=== PATIENT | female | born 1995 | race African-American/Black ===

== ENCOUNTER 2016-08-22 09:15 | Emergency (ER) | payer SELFPAY ==
[~2016-08-22] VITALS: Ht 162.6 cm; Wt 70.0 kg
[~2016-08-22 09:15] MED LIST: ACET325S8 PO
[2016-08-22 09:17] VITALS: BP 143/70; PULSE 75; RESP 16; TEMP 97.8; O2SAT 98
[2016-08-22] MEDS ORDERED: KETOROLAC TROMETHAMINE 60 MG/2 ML (IM) VIAL IM ONE (10:00)
--- NOTE | 2016-08-22 10:27 | PD ---
HPI Chief Complaint: Chest Pain Time Seen by Provider: 09:41 Travel History International Travel<30 days: No Contact w/Intl Traveler<30days: No Traveled to known affect area: No History of Present Illness HPI The patient was seen and examined in the presence of the nurse. She complains of chest pain. She's had on and off for 3 years. Severity is mild to moderate. No alleviating factors no injury PFSH Past Medical History Medical History: Denies Significant Hx Hx Anticoagulant Therapy: No ADHD: No Weight (Kg): 3 Cancer: No Cardiovascular Problems: No Chemotherapy: No Cerebrovascular Accident: No Developmental Delay: No Diabetes: No Diminished Hearing: No Headaches: Yes (OCCASIONAL HEADACHES) Psychiatric: No Respiratory: No Immunizations Current: Yes Migraines: Yes Seizures: No Thyroid Disease: No Ulcer: No Tetanus Vaccination: < 5 Years ?: Not LMP: now Menopausal: No : 1 Para: 1 Past Surgical History Appendectomy: No Section: No Cholecystectomy: No Hysterectomy: No Other Surgery: No Social History Alcohol Use: Yes (yearly) Tobacco Use: No Substance Use: No Allergies-Medications (Allergen,Severity, Reaction): Coded Allergies: No Known Allergies (Verified , 08/22/16) Reported Meds & Prescriptions Reported Meds & Active Scripts Active No Active Prescriptions or Reported Medications Review of Systems General / Constitutional: No: Fever HENT: No: Headaches Cardiovascular: Positive: Chest Pain or Discomfort Respiratory: No: Cough Physical Exam Narrative CARDIOVASCULAR: Regular rate and rhythm without murmur. Extremities showed no edema or varicosities. RESPIRATORY: Respiratory effort unlabored, no retractions or use of accessory muscles. Breath sounds are clear and symmetric. GASTROINTESTINAL: Abdomen soft, non-tender, nondistended. Positive bowel sounds. No hepato-splenomegaly, or palpable masses. No guarding. Chest wall: Readily reproducible tenderness over the lower half of her sternum Data Data Last Documented VS Vital Signs Date Time Temp Pulse Resp B/P Pulse Ox O2 Delivery O2 Flow Rate FiO2 08/22/16 09:17 97.8 75 16 143/70 98 Orders Ketorolac Inj (Toradol Inj) (08/22/16 10:00) [facility] Medical Decision Making Medical Screen Exam Complete: Yes Emergency Medical Condition: Yes Medical Record Reviewed: Yes Differential Diagnosis Differential diagnosis includes MT, angina, pericarditis, pleurisy, GERD, anxiety. Narrative Course I have reviewed the patient's electronic medical record. I reviewed her EKG which shows sinus rhythm with no ST elevation Presentation is consistent with musculoskeletal chest wall pain I gave her Toradol injection She will use Tylenol and Motrin as needed and follow-up with primary care Diagnosis Primary Impression: Musculoskeletal chest pain Additional Instructions: The patient was advised to follow up with their physician and return if they worsen. Med/Other Pt SpecificInfo: Other Scripts No Active Prescriptions or Reported Meds Disposition: 01 DISCHARGE HOME Condition: Stable Jimmy Perla MD Aug 22, 2016 10:27
--- NOTE | 2016-08-23 20:21 | EKG ---
Date Performed: 08/22/2016 Time Performed: 09:41:50 PTAGE: 21 years EKG: Sinus rhythm WITH MARKED SINUS ARRHYTHMIA POSSIBLE LEFT ATRIAL ENLARGEMENT POSSIBLE RIGHT VENTRICULAR CONDUCTION DELAY BORDERLINE ECG NO PREVIOUS TRACING DOCTOR: Erich Lam Interpretating Date/Time 08/23/2016 20:21:25
== END 2016-08-22 10:38 | disposition home or self-care (01) ==
LOC: NEPE 09:15
DX: R07.89 Other chest pain (principal)
CPT/HCPCS: 93005; 96372; 99283; J1885

== ENCOUNTER 2017-06-11 18:26 | Emergency (ER) | payer SELFPAY ==
[2017-06-11 18:29] VITALS: BP 132/86; PULSE 113; RESP 14; TEMP 99.6; O2SAT 98
--- NOTE | 2017-06-11 19:08 | PD ---
HPI . Diarrhea Chief Complaint: Cold / Flu Symptoms Time Seen by Provider: 18:58 Travel History International Travel<30 days: No Contact w/Intl Traveler<30days: No Traveled to known affect area: No History of Present Illness HPI Patient presents with chief complaint of diarrhea. Onset was about 11 PM last night. She is unable to quantify the diarrhea. She indicates that it is too numerous to count. She has had 2 episodes of emesis. Unable to tolerate fluids. Her symptoms are associated with subjective fevers and chills. She states that her sister has been sick but that she has not been around her sister. PFSH Past Medical History Hx Anticoagulant Therapy: No ADHD: No Cancer: No Cardiovascular Problems: No Chemotherapy: No Cerebrovascular Accident: No Developmental Delay: No Diabetes: No Diminished Hearing: No Headaches: Yes (OCCASIONAL HEADACHES) Psychiatric: No Respiratory: No Immunizations Current: Yes Migraines: Yes Seizures: No Thyroid Disease: No Ulcer: No LMP: 04/2017 Menopausal: No : 1 Para: 1 Past Surgical History Appendectomy: No Section: No Cholecystectomy: No Hysterectomy: No Other Surgery: No Social History Alcohol Use: Yes (yearly) Tobacco Use: No Substance Use: No Allergies-Medications (Allergen,Severity, Reaction): Coded Allergies: No Known Allergies (Verified , 08/22/16) Reported Meds & Prescriptions Reported Meds & Active Scripts Active No Active Prescriptions or Reported Medications Review of Systems Except as stated in HPI: all other systems reviewed are Neg General / Constitutional: Positive: Fever, Chills Gastrointestinal: Positive: Nausea, Vomiting, Diarrhea, No: Abdominal Pain Physical Exam Narrative Vital Signs Date Time Temp Pulse Resp B/P (MAP) Pulse Ox O2 Delivery O2 Flow Rate FiO2 06/11/17 18:29 99.6 113 14 132/86 (101) 98 Room Air GENERAL: Awake and alert and in no acute distress. SKIN: warm/dry. Good color and good turgor. HEAD: Normocephalic. Atraumatic. EYES: Pupils equal and round. No scleral icterus. No injection or drainage. ENT: No nasal bleeding or discharge. Mucous membranes pink and moist. NECK: Trachea midline. Full range of motion without pain.. CARDIOVASCULAR: Regular rate and rhythm. RESPIRATORY: No accessory muscle use. Clear to auscultation. Breath sounds equal bilaterally. GASTROINTESTINAL: Abdomen soft. Nontender. Bowel sounds present. Nondistended. MUSCULOSKELETAL: No obvious deformities. NEUROLOGICAL: Awake and alert. No obvious cranial nerve deficits. Motor grossly within normal limits. Normal speech. PSYCHIATRIC: Appropriate mood and affect; insight and judgment normal. Data Data Last Documented VS Vital Signs Date Time Temp Pulse Resp B/P (MAP) Pulse Ox O2 Delivery O2 Flow Rate FiO2 06/11/17 18:29 99.6 113 14 132/86 (101) 98 Room Air Orders Orders Ed Discharge Order (06/11/17 19:06) MDM Medical Decision Making Medical Screen Exam Complete: Yes Emergency Medical Condition: Yes Differential Diagnosis Differential diagnosis of diarrhea includes but is not limited to early enteritis, bacterial enteritis, antibiotic induced diarrhea, irritable bowel syndrome Narrative Course This patient presents with the chief complaint of diarrhea with some associated mild nausea and vomiting. She is tolerating fluids. Clinically, she looks well. Her abdomen is soft and nontender. She will be discharged home with instructions and symptomatic care. Diagnosis Primary Impression: Gastroenteritis Patient Instructions: General Instructions, Gastroenteritis (ED) Departure Forms: Tests/Procedures Additional Instructions: Drink plenty of fluids Scripts No Active Prescriptions or Reported Meds Disposition: 01 DISCHARGE HOME Condition: Stable Keyla Barreto MD Jun 11, 2017 19:08
== END 2017-06-11 19:37 | disposition home or self-care (01) ==
LOC: NEPD 18:26
DX: K52.9 Noninfective gastroenteritis and colitis, unspecified (principal)
CPT/HCPCS: 99282

== ENCOUNTER 2017-08-17 21:55 | Emergency (ER) | payer OTHER ==
[~2017-08-17] VITALS: Ht 165.1 cm; Wt 80.0 kg
[2017-08-17 22:05] VITALS: BP 129/78; PULSE 87; RESP 16; TEMP 98.3; O2SAT 100
[2017-08-17] MEDS ORDERED: IBUPROFEN 600 MG TAB PO ONE (22:30)
[2017-08-17] MEDS ORDERED: CYCLOBENZAPRINE HCL 10 MG TAB PO ONE (22:30)
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
[2017-08-17] MEDS ORDERED: CYCL10TA PO (23:48)
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
== END 2017-08-17 23:58 | disposition home or self-care (01) ==
LOC: NEPD 21:55
DX: M25.512 Pain in left shoulder (principal); V43.62XA Car passenger injured in collision with other type car in traffic accident, initial encounter
CPT/HCPCS: 70450; 71045; 73030; 99284